=== PATIENT | female | born 1945 | race Caucasian/White ===

== ENCOUNTER 2016-10-31 07:16 | Day surgery (SDC) | payer MEDICARE, OTHER ==
--- NOTE | 2016-10-17 10:14 | HISTORY AND PHYSICAL E ---
History and Physical NAME: EMERSON MILLS : 1945 AGE: 71Y ADMITTED: 10/31/2016 ROOM: REFERRING PHYSICIAN: Dr. Bonilla HISTORY: Patient was seen in August. She does have diarrhea, history of polyps, abdominal pain. The patient does have history of polyps. Last colonoscopy 2011. At this time patient for colon screening and history of polyps. Colonoscopy done in 1999 showed hemorrhoid. Last colonoscopy done in 2011 showed hemorrhoids and rectal polyps. SOCIAL HISTORY: . Does not smoke. Drinks rarely. PAST SURGICAL HISTORY: Hysterectomy. Cholecystectomy. REVIEW OF SYSTEMS: HEAD, EYES, EARS, NOSE AND THROAT: Negative. CARDIAC: Negative. ENDOCRINE: Negative. GASTROINTESTINAL: Colon screening. History of polyps. NEUROPSYCHIATRIC: Anxiety. FAMILY HISTORY: Her father had CA of the prostate. Mom with a stroke. PHYSICAL EXAMINATION: GENERAL: Pleasant female, alert, oriented, in no acute distress. VITAL SIGNS: Her blood pressure is 120/70. Pulse 80. Respirations 20. Temp is 98. HEAD, EYES, EARS, NOSE AND THROAT: Normal. NECK: Supple. LUNGS: Clear. ABDOMEN: Soft. NEUROLOGIC: Negative. CONCLUSIONS: 1. Colon screening. 2. History of colon polyps. 3. Diarrhea. 4. Abdominal pain. PLAN: Colonoscopy. Admit 10/31. MEDICATIONS: Patient takes Motrin as needed, and she takes Pristiq. DICTATING PHYSICIAN: NING GUPTA M.D. [id number] PHY#: [id number] ID: [id number] JOB#: [id number] ACCT: [id number] cc:NING GUPTA M.D. >
[2016-10-31] MEDS ORDERED: PROMETHAZINE HCL INJ 25 MG/1 ML VIAL ONE (07:38)
[2016-10-31] MEDS ORDERED: GLYCOPYRROLATE INJ 0.4 MG/2 ML VIAL ONE (07:38)
[2016-10-31] MEDS ORDERED: NALOXONE HCL INJ/PF 0.4 MG/1 ML SDV ONE (07:38)
[2016-10-31] MEDS ORDERED: LIDOCAINE 2% JELLY 30 ML TUBE ONE (07:38)
[2016-10-31] MEDS ORDERED: ONDANSETRON HCL INJ/PF 4 MG/2 ML SDV ONE (07:38)
[2016-10-31] MEDS ORDERED: GLUCAGON,HUMAN RECOMB 1 MG INJ ONE (07:39)
[2016-10-31] MEDS ORDERED: EPINEPHRINE INJ 1 MG/10 ML DISP.SYRIN ONE (07:39)
[2016-10-31] MEDS ORDERED: FLUMAZENIL INJ 0.5 MG/5 ML VIAL IV ONE (07:39)
[2016-10-31] MEDS: MIDAZOLAM 2 MG/2 ML INJ ONE ×2 (08:30→08:39)
[2016-10-31] MEDS: FENTANYL CITRATE INJ/PF 100 MCG/2 ML AMPUL ONE ×2 (08:32→08:37)
[2016-10-31 10:05] VITALS: BP 85/69
--- NOTE | 2016-10-31 13:08 | DISCHARGE SUMMARY E ---
Discharge Summary NAME: EMERSON MILLS : 1945 AGE: 71Y ADMITTED: 10/31/2016 DISCHARGED: 10/31/2016 PROCEDURE: Colonoscopy. FINAL DIAGNOSES: 1. Sigmoid diverticulosis. 2. Descending colon diverticulosis. 3. Diminutive rectoanal junction polyps. HISTORY: She is 71. Colon today shows no malignancy, difficult colonoscopy, adhesions from previous , diminutive anal polyps, sigmoid diverticulosis. DISCHARGE PLAN: 1. Soft, low residue for 3 days. 2. Hold aspirin for 3 days. 3. Consideration of follow-up colonoscopy in 5 years. DICTATING PHYSICIAN: NING GUPTA M.D. [id number] PHY#: [id number] ID: [id number] JOB#: [id number] ACCT: [id number] cc:NING GUPTA M.D. >
--- NOTE | 2016-10-31 13:18 | OPERATIVE REPORT E ---
Operative Report NAME: EMERSON MILLS : 1945 AGE: 71Y DATE OF SURGERY: 10/31/2016 ROOM: PREOPERATIVE DIAGNOSIS: COLON SCREENING. POSTOPERATIVE DIAGNOSES: 1. DIMINUTIVE ANAL POLYPS, 1 TO 2 MM IN SIZE, TOO SMALL TO SAMPLE, BENIGN. 2. SIGMOID DESCENDING COLON DIVERTICULOSIS. OPERATION: Colonoscopy. SURGEON: NING GUPTA M.D. ANESTHESIA: The patient is sensitive to sedation, adequately sedated with Versed 3 and fentanyl 100. TISSUE REMOVED OR ALTERED: None. PROCEDURE: Rectal exam; shows diminutive anal polyps, 1 to 2 mm in size, too small to biopsy. Sigmoid descending colon; diverticulosis, redundant colon. Transverse colon; normal. Ascending colon; normal. Cecum; normal. Scope withdrawn cecum, ascending, transverse, descending, sigmoid all the way to the rectum. CONCLUSIONS: 1. Difficult colonoscopy. No evidence of malignancy. 2. Sigmoid descending colon diverticulosis. 3. Diminutive anorectal junction polyps 1 to 2 mm in size, too small to sample, benign. PLAN: Consideration followup colonoscopy 5 years. DICTATING PHYSICIAN: NING GUPTA M.D. [id number] PHY#: [id number] ID: [id number] JOB#: [id number] ACCT: [id number] cc:MD KATELYNN, NING STRANGE M.D. >
== END 2016-10-31 08:46 | disposition home or self-care (01) ==
LOC: END 07:16
PROVIDERS: ATTEND Specialist
PROC: 0DJD8ZZ Inspection of Lower Intestinal Tract, Via Natural or Artificial Opening Endoscopic (ICD-10-PCS; principal; 2016-10-31 08:00)
DX: Z12.11 Encounter for screening for malignant neoplasm of colon (principal); K57.30 Diverticulosis of large intestine without perforation or abscess without bleeding; K62.0 Anal polyp; F41.9 Anxiety disorder, unspecified; Z79.899 Other long term (current) drug therapy; Z79.4 Long term (current) use of insulin
CPT/HCPCS: G0121; J2250; J3010; J1610; J2405; 45378; J0171; J2310; J2550; J3490

== ENCOUNTER 2019-01-16 10:34 | Emergency (ER) | payer MEDICARE, OTHER ==
[2019-01-16] MEDS ORDERED: HYDROCODONE/ACETAMINOPHEN 5-325 MG TABLET PO ONE (10:50)
[2019-01-16] MEDS ORDERED: ONDANSETRON 4 MG TAB.RAPDIS PO ONE (10:50)
--- NOTE | 2019-01-16 10:51 | ER Document Report ---
ED Medical Screen (RME) - General Chief Complaint: Fall Injury Stated Complaint: BACK PAIN Time Seen by Provider: 01/16/19 10:46 Primary Care Provider: MICHAEL FLOR PA [Primary Care Provider] - Follow up as needed Information source: Patient Notes: Patient with mechanical fall from chair. Patient landed on buttocks. Patient with lower back pain. No radiculopathy or paresthesia. Patient does have a history of Parkinson's. I have greeted and performed a rapid initial assessment of this patient. A comprehensive ED assessment and evaluation of the patient, analysis of test results and completion of the medical decision making process will be conducted by additional ED providers. TRAVEL OUTSIDE OF THE [place] IN LAST 30 DAYS: No - Related Data Allergies/Adverse Reactions: No Known Allergies Allergy (Verified 10/31/16 07:28) Past Medical History - Past Medical History Cardiac Medical History: Denies: Hx Coronary Artery Disease, Hx Heart Attack, Hx Hypertension Pulmonary Medical History: Denies: Hx Asthma, Hx Bronchitis, Hx COPD, Hx Pneumonia Neurological Medical History: Denies: Hx Cerebrovascular Accident, Hx Seizures Musculoskeltal Medical History: Reports Hx Arthritis - osteopenia Past Surgical History: Reports: Hx Cholecystectomy, Hx Hysterectomy. Denies: Hx Pacemaker - Immunizations Hx Diphtheria, Pertussis, Tetanus Vaccination: No Physical Exam - Vital signs Vitals: Pulse Resp BP Pulse Ox 68 18 101/58 L 100 01/16/19 10:45 01/16/19 10:45 01/16/19 10:45 01/16/19 10:45 - Back Back: Tender - Lumbar paraspinal tenderness, Vertebra tenderness - Lumbar te nderness Course - Vital Signs Vital signs: Temp Pulse Resp BP Pulse Ox 68 18 101/58 L 100 01/16/19 10:45 01/16/19 10:45 01/16/19 10:45 01/16/19 10:45 Doctor's Discharge - Discharge Referrals: MICHAEL FLOR PA [Primary Care Provider] - Follow up as needed
--- NOTE | 2019-01-16 11:37 | RADIOLOGY REPORT (SQ) ---
EXAM DESCRIPTION: L SPINE WHOLE COMPLETED DATE/TIME: 01/16/2019 11:23 am REASON FOR STUDY: fall, back pain COMPARISON: None. NUMBER OF VIEWS: Five views including obliques. TECHNIQUE: AP, lateral, oblique, and sacral radiographic images acquired of the lumbar spine. LIMITATIONS: None. FINDINGS: MINERALIZATION: Osteopenic. SEGMENTATION: Normal. No transitional anatomy. ALIGNMENT: Normal. VERTEBRAE: Generally maintained although there is minimal probably chronic wedging at the L1 level. DISCS: Multilevel disc space narrowing with osteophytes. POSTERIOR ELEMENTS: Pedicles and facets are intact. No pars defect or posterior arch defects. Facet arthropathy is present. HARDWARE: None in the spine. PARASPINAL SOFT TISSUES: Normal. PELVIS: Intact as visualized. No fractures or worrisome bone lesions. SI joints intact. OTHER: No other significant finding. IMPRESSION: Osteopenia and spondylosis. Other findings as above. Doubt acute fracture. TECHNICAL DOCUMENTATION: JOB ID: [id number] [employer]- All Rights Reserved Reading location - IP/workstation name: [email or web address]
--- NOTE | 2019-01-16 14:11 | RADIOLOGY REPORT (SQ) ---
EXAM DESCRIPTION: CT LUMBAR SPINE WITHOUT COMPLETED DATE/TIME: 01/16/2019 1:40 pm REASON FOR STUDY: fall COMPARISON: None. TECHNIQUE: Axial images acquired through the lumbar spine without intravenous contrast. Images revie wed with lung, soft tissue and bone windows. Reconstructed coronal and sagittal MPR images reviewed. Images stored on PACS. All CT scanners at this facility use dose modulation, iterative reconstruction, and/or weight based d osing when appropriate to reduce radiation dose to as low as reasonably achievable (ALARA). [facility]: Dose Right [facility]: CareDose [facility]: Dose Right [facility]: Teradose 4D [facility]: [employer] RADIATION DOSE: mGy. LIMITATIONS: None. FINDINGS: SOFT TISSUES: No soft tissue swelling. No masses. SEGMENTATION: Normal. No transitional anatomy. ALIGNMENT: Normal. VERTEBRAL BODIES: Irregularity of the inferior endplate of the L1 and L4 vertebral bodies with mild c ompression, possible acute anterior column fractures. DISCS: Mild degenerative disc disease-bulging throughout the lumbar spine. PEDICLES, TRANSVERSE PROCESSES: No fractures. No dislocation. No acute findings. FACETS, POSTERIOR ELEMENTS: No fractures. No dislocation. Mild facet arthrosis greatest at the L5-S1 level. HARDWARE: None in the spine. VISUALIZED RIBS: No fractures. OTHER: No other significant finding. IMPRESSION: Irregularity of the inferior endplate of the L1 and L4 vertebral bodies with mild compre ssion, possible acute anterior column fractures. TECHNICAL DOCUMENTATION: JOB ID: [id number] Quality ID # [id number]: Final reports with documentation of one or more dose reduction techniques (e.g., Au tomated exposure control, adjustment of the mA and/or kV according to patient size, use of iterative reconstruction technique) 2010 [employer]- All Rights Reserved Reading location - IP/workstation name: [email or web address]
[2019-01-16] MEDS ORDERED: HYDROCODONE/ACETAMINOPHEN 5-325 MG (6 TAB/ER DISP) PO PRN (14:40)
--- NOTE | 2019-01-16 14:41 | ER Document Report ---
ED Fall - General Chief Complaint: Fall Injury Stated Complaint: BACK PAIN Time Seen by Provider: 01/16/19 10:46 Primary Care Provider: MICHAEL FLOR PA [ALLIED HEALTH PROFESSIONAL] - Follow up as needed Information source: Patient Notes: Very pleasant 73-year-old female with Parkinson's disease presents to the emergency department after fall at home from chair. She states she was standing on a chair reaching for something and then she went to step down off of the chair slipped and landed on her buttocks. She denies hitting her head or denies loss of consciousness. She was in acute pain but was able to ambulate. She denies any numbness, tingling, paralysis of any of her extremities, denies urinary retention, denies saddle paresthesia. Denies dizziness or lightheadedness, denies headache. TRAVEL OUTSIDE OF THE [place] IN LAST 30 DAYS: No - Related data Allergies/Adverse Reactions: No Known Allergies Allergy (Verified 10/31/16 07:28) Past Medical History - General Information source: Patient - Social History Smoking Status: Never Smoker Chew tobacco use (# tins/day): No Frequency of alcohol use: None Drug Abuse: None Family History: Reviewed & Not Pertinent Patient has suicidal ideation: No Patient has homicidal ideation: No - Past Medical History Cardiac Medical History: Denies: Hx Coronary Artery Disease, Hx Heart Attack, Hx Hypertension Pulmonary Medical History: Denies: Hx Asthma, Hx Bronchitis, Hx COPD, Hx Pneumonia Neurological Medical History: Denies: Hx Cerebrovascular Accident, Hx Seizures Renal/ Medical History: Denies: Hx Peritoneal Dialysis Musculoskeletal Medical History: Reports Hx Arthritis - osteopenia Past Surgical History: Reports: Hx Cholecystectomy, Hx Hysterectomy. Denies: Hx Pacemaker - Immunizations Hx Diphtheria, Pertussis, Tetanus Vaccination: No Review of Systems - Review of Systems Constitutional: See HPI EENT: See HPI Cardiovascular: No symptoms reported Respiratory: No symptoms reported Gastrointestinal: No symptoms reported, See HPI Genitourinary: No symptoms reported Female Genitourinary: No symptoms reported Musculoskeletal: See HPI Skin: No symptoms reported Hematologic/Lymphatic: No symptoms reported Neurological/Psychological: See HPI Physical Exam - Vital signs Vitals: Pulse Resp BP Pulse Ox 68 18 101/58 L 100 01/16/19 10:45 01/16/19 10:45 01/16/19 10:45 01/16/19 10:45 - Notes Notes: PHYSICAL EXAMINATION: Reviewed vital signs and charting by RN GENERAL: Alert, interacts well. No acute distress. HEAD: Normocephalic, atraumatic. EYES: Pupils equal, round. Extraocular movements intact. NECK: Full range of motion. Supple. Trachea midline. LUNGS: Clear to auscultation bilaterally, no wheezes, rales, or rhonchi. No respiratory distress. HEART: Regular rate and rhythm. No murmur ABDOMEN: soft, non-tender. No distention. Bowel sounds present EXTREMITIES: Moves all 4 extremities spontaneously. No edema, No cyanosis. Strength 5/5 x 4 extremities, 5/5 strength with plantar and dorsiflexion, SILT BLE, patient ambulated around the room without pain PSYCH: Normal affect, normal mood. SKIN: Warm, dry, normal turgor. No rashes or lesions noted. Course - Re-evaluation Re-evalutation: 01/16/19 15:09 Overall well-appearing. Plain film lumbar x-ray noted a "possible" fracture of L1 so I proceeded to a CT of the lumbar spine. CT stated, again, possible an terior L1 and L4 compression fractures. No evidence of any spinal cord injury or risk to the spinal cord. No red flags for the patient. No neuro deficits. I explained all this to the patient and told her she could safely discharged home with close follow-up with her primary doctor to consider potential MRI testing. Patient was in agreement with this plan. Stable for discharge. - Vital Signs Vital signs: Temp Pulse Resp BP Pulse Ox 68 18 101/58 L 100 01/16/19 10:45 01/16/19 10:45 01/16/19 10:45 01/16/19 10:45 Discharge - Discharge Clinical Impression: Fall Qualifiers: Encounter type: initial encounter Qualified Code(s): W19.XXXA - Unspecified fall, initial encounter Condition: Good Disposition: HOME, SELF-CARE Additional Instructions: You were seen in the emergency department this afternoon for a fall. The x-ray and the CT of your lumbar did not show definitive evidence of a fracture. Nonetheless there is nothing unstable in your presentation or in the radiology tests that would require an emergent transfer or admission to the hospital. Please follow-up with your primary doctor in the next 24 to 48 hours. You can take Tylenol 1000 mg every 6 hours and/or Motrin 400 mg every 6 hours for pain. I have also given you a short course of pain medication that you can take to help you sleep at night. If you develop acute urinary retention meaning you have to pee but you are unable to, you have bowel incontinence, numbness in your sit bones, you get numbness or tingling in your arms or legs, paralysis in one o r more of your arms or legs please immediately return to the emergency department as this indicates an unstable condition. Referrals: MICHAEL FLOR PA [ALLIED HEALTH PROFESSIONAL] - Follow up as needed
[2019-01-16 15:31] VITALS: BP 118/52
== END 2019-01-16 15:35 | disposition home or self-care (01) ==
LOC: ER 10:34
DX: M54.9 Dorsalgia, unspecified (principal); W07.XXXA Fall from chair, initial encounter; Y92.009 Unspecified place in unspecified non-institutional (private) residence as the place of occurrence of the external cause; G20 Parkinson's disease
CPT/HCPCS: 99284; 72110; 72131; A9270 ×2

== ENCOUNTER 2020-07-17 13:19 | Emergency (ER) | payer MEDICARE, OTHER ==
[2020-07-17] MEDS ORDERED: DIPH/PERTUSS(ACELL)/TETANUS VAC/PF 0.5 ML SYR (>=10YO) IM ONE (15:07)
[2020-07-17] MEDS ORDERED: LIDOCAINE 1% INJ-PF (10 MG/ML) 30 ML SDV INJ ONE (15:08)
--- NOTE | 2020-07-17 15:12 | ER Document Report ---
ED General <MARITZA CARMONA - Last Filed: 07/17/20 16:31> - General TRAVEL OUTSIDE OF THE [place] IN LAST 30 DAYS: No - Related Data Home Medications: List reviewed with patient <LISA LOBO - Last Filed: 07/17/20 16:43> - General Chief Complaint: Fall Injury Stated Complaint: FALL/UPPER LIP/NOSE PAIN Time Seen by Provider: 07/17/20 14:54 Primary Care Provider: SHADI MENENDEZ MD [Primary Care Provider] - Follow up as needed - HPI Notes: Patient is a very pleasant 74-year-old female who presents to the emergency department for evaluation after a trip and fall. 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 She denies any neck or back pain. She denies losing consciousness. She denies any difficulty seeing, speaking, swallowing. She complains of pain primarily in her nose. She states her bite aligns normally. She is unsure as to when her last tetanus shot was. She has been ambulatory since the incident, has no leg pain. (LISA LOBO) - Related Data Allergies/Adverse Reactions: No Known Allergies Allergy (Verified 10/31/16 07:28) Past Medical History - General Information source: Patient - Social History Smoking Status: Former Smoker Frequency of alcohol use: Occasional Drug Abuse: None Family History: Reviewed & Not Pertinent Patient has homicidal ideation: No - Past Medical History Cardiac Medical History: Denies: Hx Coronary Artery Disease, Hx Heart Attack, Hx Hypertension Pulmonary Medical History: Denies: Hx Asthma, Hx Bronchitis, Hx COPD, Hx Pneumonia Neurological Medical History: Reports: Hx Parkinson's Disease. Denies: Hx Cerebrovascular Accident, Hx Seizures Renal/ Medical History: Denies: Hx Peritoneal Dialysis Musculoskeletal Medical History: Reports Hx Arthritis - osteopenia Psychiatric Medical History: Reports: Hx Depression Past Surgical History: Reports: Hx Cholecystectomy, Hx Hysterectomy, Hx Orthopedic Surgery - right leg. Denies: Hx Pacemaker - Immunizations Hx Diphtheria, Pertussis, Tetanus Vaccination: No <LISA LOBO Belle - Last Filed: 07/17/20 16:43> Review of Systems - Review of Systems Constitutional: No symptoms reported EENT: See HPI Cardiovascular: No symptoms reported Respiratory: No symptoms reported Gastrointestinal: No symptoms reported Genitourinary: No symptoms reported Musculoskeletal: See HPI Skin: See HPI Neurological/Psychological: No symptoms reported <LISA LOBO - Last Filed: 07/17/20 16:43> Physical Exam <LISA LOBO - Last Filed: 07/17/20 16:43> - Vital signs Vitals: Temp Pulse Resp BP Pulse Ox 98.1 F 83 16 134/74 H 96 07/17/20 13:33 07/17/20 13:33 07/17/20 13:33 07/17/20 13:33 07/17/20 13:33 - Notes Notes: Vital signs reviewed, please refer to chart. Head is normocephalic, atraumatic. Pupils equal round, reactive to light. Nares are patent without septal hematoma. Significant abrasion noted over the bridge of nose. No facial bone tenderness, no orbital stepoff. Patient with linear laceration that goes through the lip but does not cross the vermilion border. It is linear traversing up the inner labial mucosa towards the nasal septum, does seem to involve the muscular layer. Oral mucosa is moist. Uvula is midline. Examination of the spine yields no midline tenderness or step-off. No paraspinal musculature tenderness is appreciated. Heart is regular rate and rhythm. Lungs are clear to auscultation bilaterally. Chest wall excursion is equal, chest is nontender. Abdomen is soft, nontender, normoactive bowel sounds throughout. Extremities without cyanosis, clubbing. Posterior calves are nontender. Peripheral pulses are equal. Skin is warm and dry. Patient is awake, alert, oriented x3. Cranial nerves II - XII are grossly intact without focal neurological deficits. Strength is plus 5 out of 5 bilateral upper and lower extremities. Sensation is intact. Reflexes symmetrical. Intact [id number], rapid alternating movements, [id number]. (LISA LOBO) Course <LISA LOBO - Last Filed: 07/17/20 16:43> - Re-evaluation Re-evalutation: 07/17/20 15:14 Patient presents emergency department for evaluation. She sustained a fall and injured her face. She has no neurological deficits or symptoms. She did not lose consciousness. This is a fall from standing. I will go ahead and scan her face and C-spine. Tetanus updated. She is currently stable, we will continue to monitor. 07/17/20 15:58 Patient feeling stable, she has a mild aching pain. She is ordered Tylenol. Skin of her face and neck are unremarkable. 07/17/20 16:42 Sutures placed by the physician miller head assistant wet process, please see his separate procedure note. Patient tolerated this well, wound well approximated. We will discharge her to home. She was offered pain medication, refused. States she will take Tylenol at home. She is to follow-up with primary care this week, return to the ED with worsening. (LISA LOBO) - Vital Signs Vital signs: Temp Pulse Resp BP Pulse Ox 98.1 F 83 16 134/74 H 96 07/17/20 13:33 07/17/20 13:33 07/17/20 13:33 07/17/20 13:33 07/17/20 13:33 Procedures - Laceration/Wound Repair Face Time completed: 16:25 Wound length (cm): 1.5 Wound's Depth, Shape: Irregular - gaping laceration to the wet border of the medial upper lip. wound extends superficially to dry border and does not cross hailey border. no loose/broken/missing teeth. no foreign bodies visualized inside wound. Laceration pre-procedure: Sterile PPE donned, ShtanmayClens applied Anesthetic type: 1% Lidocaine Volume Anesthetic (mLs): 2 Wound explored: Clean, No foreign body removed Irrigated w/ Saline (mLs): 10 Wound Repaired With: Sutures Suture Size/Type: 5:0, Other - absorable gut Number of Sutures: 2 Layer Closure?: No Post-procedure NV exam normal: Yes Complications: No <MARITZA CARMONA - Last Filed: 07/17/20 16:31> Discharge <MARITZA CARMONA - Last Filed: 07/17/20 16:31> <LISA LOBO - Last Filed: 07/17/20 16:43> - Discharge Clinical Impression: Facial abrasion Qualifiers: Encounter type: initial encounter Qualified Code(s): S00.81XA - Abrasion of other part of head, initial encounter Lip laceration Qualifiers: Encounter type: initial encounter Qualified Code(s): S01.511A - Laceration without foreign body of lip, initial encounter Condition: Stable Disposition: HOME, SELF-CARE Instructions: Antibiotic Ointment Protection ([facility]), Laceration Care ([facility]) Additional Instructions: Keep nasal wound clean with soap and water. Sutures in your lip should dissolve. Follow-up with your primary care provider this week. Salt water rinses as discussed after eating. Tylenol or ibuprofen as needed for pain. If you develop worsening or new concerning symptoms of any sort, please return immediately to the emergency department for reevaluation. Referrals: SHADI MENENDEZ MD [Primary Care Provider] - Follow up as needed
--- NOTE | 2020-07-17 15:41 | RADIOLOGY REPORT (SQ) ---
EXAM DESCRIPTION: CT FACIAL AREA WITHOUT IMAGES COMPLETED DATE/TIME: 07/17/2020 3:30 pm REASON FOR STUDY: injury COMPARISON: None. TECHNIQUE: Noncontrasted images through the facial bones and orbits windowed for bone and soft tissu e. Additional coronal and sagittal reconstructed images reviewed. All images stored on PACS. All CT scanners at this facility use dose modulation, iterative reconstruction, and/or weight based d osing when appropriate to reduce radiation dose to as low as reasonably achievable (ALARA). [facility]: Dose Right [facility]: CareDose [facility]: Dose Right [facility]: Teradose 4D [facility]: [employer] RADIATION DOSE: CT Rad equipment meets quality standard of care and radiation dose reduction techniq ues were employed. CTDIvol: 30.4 mGy. DLP: 638 mGy-cm. mGy. LIMITATIONS: None. FINDINGS: FACIAL BONES: No fracture or bone lesion. ORBITS: Intact. No fracture. Symmetric intact globes and retroorbital soft tissues. PARANASAL SINUSES: Clear. No significant mucosal thickening, mass or fluid. No nasal polyps. Maxill ninfa sinus outlets are patent. SOFT TISSUES: No mass or edema. INFERIOR BRAIN: Limited view. No acute findings. OTHER: No other significant finding. IMPRESSION: NO ACUTE FINDINGS. TECHNICAL DOCUMENTATION: JOB ID: [id number] Quality ID # [id number]: Final reports with documentation of one or more dose reduction techniques (e.g., Au tomated exposure control, adjustment of the mA and/or kV according to patient size, use of iterative reconstruction technique) 2010 [employer]- All Rights Reserved Reading location - IP/workstation name: [email or web address]
--- NOTE | 2020-07-17 15:42 | RADIOLOGY REPORT (SQ) ---
EXAM DESCRIPTION: CT CERVICAL SPINE WITHOUT IMAGES COMPLETED DATE/TIME: 07/17/2020 3:30 pm REASON FOR STUDY: fall COMPARISON: None. TECHNIQUE: Axial images acquired through the cervical spine without intravenous contrast. Images re viewed with lung, soft tissue and bone windows. Reconstructed coronal and sagittal MPR images review ed. Images stored on PACS. All CT scanners at this facility use dose modulation, iterative reconstruction, and/or weight based d osing when appropriate to reduce radiation dose to as low as reasonably achievable (ALARA). [facility]: Dose Right [facility]: CareDose [facility]: Dose Right [facility]: Teradose 4D [facility]: [employer] RADIATION DOSE: CT Rad equipment meets quality standard of care and radiation dose reduction techniq ues were employed. CTDIvol: 8.9 mGy. DLP: 182 mGy-cm. mGy. LIMITATIONS: None. FINDINGS: ALIGNMENT: Reversal of the lordotic curve. MINERALIZATION: Normal. VERTEBRAL BODIES: No fractures or dislocation. DISCS: Multilevel disc space narrowing with osteophytes. FACETS, LATERAL MASSES, POSTERIOR ELEMENTS: Facet arthropathy. No fractures. No dislocation. No ac phillip findings. HARDWARE: None in the spine. VISUALIZED RIBS: No fractures. LUNG APICES AND SOFT TISSUES: No significant or acute findings. OTHER: No other significant finding. IMPRESSION: CHRONIC DEGENERATIVE CHANGES. NO ACUTE FINDINGS. TECHNICAL DOCUMENTATION: JOB ID: [id number] Quality ID # [id number]: Final reports with documentation of one or more dose reduction techniques (e.g., Au tomated exposure control, adjustment of the mA and/or kV according to patient size, use of iterative reconstruction technique) 2010 [employer]- All Rights Reserved Reading location - IP/workstation name: [email or web address]
[2020-07-17] MEDS ORDERED: ACETAMINOPHEN 325 MG TABLET PO ONE (15:58)
[2020-07-17 16:53] VITALS: BP 119/63
== END 2020-07-17 16:53 | disposition home or self-care (01) ==
LOC: ER 13:19
DX: S01.511A Laceration without foreign body of lip, initial encounter (principal); S00.81XA Abrasion of other part of head, initial encounter; W01.0XXA Fall on same level from slipping, tripping and stumbling without subsequent striking against object, initial encounter; Z90.49 Acquired absence of other specified parts of digestive tract; Z90.710 Acquired absence of both cervix and uterus; Z23 Encounter for immunization
CPT/HCPCS: 99284; 90471; 70486; 72125; 90715; 12011; A9270; J3490